=== PATIENT | male | born 1980 | race Two or more races ===

== ENCOUNTER 2023-04-12 10:18 | Emergency (ER) | payer OTHER ==
[~2023-04-12] VITALS: Ht 172.7 cm; Wt 74.4 kg
[2023-04-12 11:35] VITALS: BP 111/69; PULSE 73; RESP 16; TEMP 98.2; O2SAT 98
[2023-04-12] MEDS ORDERED: METH-1182 PO (12:18)
[2023-04-12] MEDS ORDERED: IBUP-1456 PO (12:18)
== END 2023-04-12 12:22 | disposition home or self-care (01) ==
LOC: ER 10:18
DX: S16.1XXA Strain of muscle, fascia and tendon at neck level, initial encounter (principal); V49.88XA Car occupant (driver) (passenger) injured in other specified transport accidents, initial encounter; Y93.89 Activity, other specified; Y92.89 Other specified places as the place of occurrence of the external cause; Y99.8 Other external cause status
CPT/HCPCS: 72040